=== PATIENT | female | born 1985 ===

== ENCOUNTER 2022-03-29 12:12 | Emergency (ER) | payer OTHER ==
[2022-03-29 15:03] VITALS: BP 112/70
--- NOTE | 2022-03-29 15:07 | Emergency Department Report ---
Chief Complaint: Extremity Injury, Lower Stated Complaint: CONFIRM PREGENCY/LEG SWELLING Time Seen by Provider: 03/29/22 15:05 - HPI History of Present Illness: Intermittent right leg pain. No period in 2 months. - ROS Review of Systems: Right leg pain. - Exam Vital Signs: Vital Signs 03/29/22 14:58 Temperature 98.5 F Pulse Rate 85 Respiratory 18 Rate Blood Pressure 112/70 [Right] O2 Sat by Pulse 98 Oximetry Physical Exam: Right leg pain. MSE screening note: Focused history and physical exam performed. Due to findings the following was ordered: UA, qualitative urine . Patient will be seen by provider when she gets a room in the back. ED Disposition for MSE Condition: Stable
[2022-03-29 15:39] LABS: HCG Qualitative,Urine Negative (Negative)
[2022-03-29 15:43] LABS: Mucus,Urine FEW /HPF
[2022-03-29 16:01] LABS: Bilirubin,Urine Negative (Negative); Blood,Urine Negative (Negative); Color,Urine Straw (Yellow); Protein,Urine <15 mg/dL mg/dL (Negative)
--- NOTE | 2022-03-29 18:13 | Emergency Department Report ---
ED Back Pain/Injury HPI - General Chief Complaint: Extremity Injury, Lower Stated Complaint: CONFIRM PREGENCY/LEG SWELLING Time Seen by Provider: 03/29/22 15:05 Source: patient Limitations: Language Barrier - History of Present Illness Initial Comments: Patient is a 36-year-old female with no past medical history presents to the ED with complaint of acute onset persistent nontraumatic low back pain that radiates to the lower extremities bilaterally for the last 2 months intermittently. Patient states that in the last 1 week, the pain has been constant and persistent. Patient states that she has been taking her [id number] ibuprofen with no relief. Patient denies dysuria, urinary frequency and urgency, chest pain, shortness of breath, traumatic injury, heavy lifting, nausea and vomiting, fever, chills, fall, numbness and tingling or weakness of lower extremities bilaterally. MD Complaint: back pain (LOWER BACK ), other (Pain radiates to the lower extremities bilaterally) -: Gradual, month(s) (2) Similar Symptoms Previously: Yes Place: home Radiation: left leg, right leg Severity: moderate Severity scale (0 -10): 6 Quality: sharp, aching Consistency: intermittent Improves With: none Worsens With: none Context: while lifting, turning/twisting Associated Symptoms: denies other symptoms. denies: confusion, weakness, numbness, difficulty walking, cough, difficulty urinating, diaphoresis, incontinence, fever/chills, headaches, abdominal pain, loss of appetite, malaise, nausea/vomiting, rash, seizure, shortness of breath, syncope, other Treatments Prior to Arrival: NSAIDS - Related Data Previous Rx's Medication Instructions Recorded Last Taken Type Ibuprofen [Motrin] 800 mg PO Q8HR PRN #40 tablet 03/29/22 Unknown Rx methOCARBAMOL [Robaxin TAB] 750 mg PO Q8H PRN #30 tab 03/29/22 Unknown Rx predniSONE [Deltasone] 60 mg PO QDAY #15 tab 03/29/22 Unknown Rx Allergies Allergy/AdvReac Type Severity Reaction Status Date / Time No Known Allergies Allergy Verified 03/29/22 14:57 ED Review of Systems ROS: Stated complaint: CONFIRM PREGENCY/LEG SWELLING Other details as noted in HPI Constitutional: denies: chills, fever Eyes: denies: eye pain, eye discharge, vision change ENT: denies: ear pain, throat pain Respiratory: denies: cough, shortness of breath, wheezing Cardiovascular: denies: chest pain, palpitations Endocrine: no symptoms reported Gastrointestinal: denies: abdominal pain, nausea, diarrhea Genitourinary: denies: urgency, dysuria, discharge Musculoskeletal: back pain (Low back pain that radiates to the lower extremities bilaterally), arthralgia, myalgia. denies: joint swelling Skin: denies: rash, lesions Neurological: denies: headache, weakness, paresthesias Psychiatric: denies: anxiety, depression Hematological/Lymphatic: denies: easy bleeding, easy bruising ED Past Medical Hx - Past Medical History Previous Medical History?: No - Surgical History Past Surgical History?: No - Medications Home Medications: Home Medications Medication Instructions Recorded Confirmed Last Taken Type Ibuprofen [Motrin] 800 mg PO Q8HR PRN #40 tablet 03/29/22 Unknown Rx methOCARBAMOL [Robaxin TAB] 750 mg PO Q8H PRN #30 tab 03/29/22 Unknown Rx predniSONE [Deltasone] 60 mg PO QDAY #15 tab 03/29/22 Unknown Rx ED Physical Exam - General Limitations: Language Barrier General appearance: alert, in no apparent distress - Head Head exam: Present: atraumatic, normocephalic, normal inspection - Eye Eye exam: Present: normal appearance, PERRL, EOMI Pupils: Present: normal accommodation - ENT ENT exam: Present: normal exam, normal orophraynx, mucous membranes moist, TM's normal bilaterally, normal external ear exam - Neck Neck exam: Present: normal inspection, full ROM. Absent: tenderness - Respiratory Respiratory exam: Present: normal lung sounds bilaterally. Absent: respiratory distress, wheezes, rales, rhonchi, stridor, chest wall tenderness, accessory muscle use, decreased breath sounds, prolonged expiratory - Cardiovascular Cardiovascular Exam: Present: regular rate, normal rhythm, normal heart sounds. Absent: systolic murmur, diastolic murmur, rubs, gallop - GI/Abdominal GI/Abdominal exam: Present: soft, normal bowel sounds. Absent: distended, tenderness, guarding, rebound, hyperactive bowel sounds, hypoactive bowel sounds, mass - Extremities Exam Extremities exam: Present: normal inspection, full ROM, normal capillary refill. Absent: tenderness - Back Exam Back exam: Present: normal inspection, full ROM, tenderness (Palpable lumbosacral paraspinal musculoskeletal tenderness), muscle spasm, paraspinal tenderness. Absent: CVA tenderness (R), CVA tenderness (L), vertebral tenderness - Neurological Exam Neurological exam: Present: alert, oriented X3, CN II-XII intact, normal gait, reflexes normal - Psychiatric Psychiatric exam: Present: normal affect, normal mood - Skin Skin exam: Present: warm, dry, intact, normal color. Absent: rash ED Course Vital Signs 03/29/22 14:58 Temperature 98.5 F Pulse Rate 85 Respiratory 18 Rate Blood Pressure 112/70 [Right] O2 Sat by Pulse 98 Oximetry ED Medical Decision Making - Medical Decision Making This is a 36-year-old female with no past medical history presents to the ED with complaint of acute onset persistent nontraumatic low back pain that radiates to the lower extremities bilaterally for the last 2 months intermittently. Patient states that in the last 1 week, the pain has been constant and persistent. Patient states that she has been taking her [id number] ibuprofen with no relief. In the ED, patient is alert and oriented x3 and is not in any distress. Patient was treated for pain in the ED. Urinalysis is unremarkable. On reevaluation, patient's pain is well contr olled medication. Patient will discharge home on pain medications and advised to follow-up with her primary care physician in 7 to 10 days for regular reevaluation. Patient was advised to return to the ED immediately if symptoms get worse. - Differential Diagnosis Muscle spasm; muscle strain; sciatica; Critical care attestation.: If time is entered above; I have spent that time in minutes in the direct care of this critically ill patient, excluding procedure time. ED Disposition Clinical Impression: Spasm of muscle of lower back, Strain of muscle, fascia and tendon of lower back, initial encounter Chronic low back pain with bilateral sciatica Qualifiers: Back pain laterality: bilateral Qualified Code(s): M54.42 - Lumbago with sciatica, left side Disposition: 01 HOME / SELF CARE / HOMELESS Is pt being admited?: No Does the pt Need Aspirin: No Condition: Stable Instructions: Muscle Cramps and Spasms, [id number], Sciatica, [id number], Muscle Strain, [id number], Lumbosacral Strain, Chronic Back Pain, [id number] Additional Instructions: Take medication with food, drink plenty of fluids, follow-up with your primary care physician in 7 to 10 days for reevaluation. Return to the ED immediately if symptoms get worse. Prescriptions: predniSONE [Deltasone] 60 mg PO QDAY #15 tab Ibuprofen [Motrin] 800 mg PO Q8HR PRN #40 tablet PRN Reason: Pain , Severe (7-10) methOCARBAMOL [Robaxin TAB] 750 mg PO Q8H PRN #30 tab PRN Reason: Muscle spasm Referrals: [facility] [Provider Group] - 7-10 days Time of Disposition: 18:11 Print Language: KOREAN
== END 2022-03-29 18:23 | disposition home or self-care (01) ==
LOC: ED 12:12
DX: S39.012A Strain of muscle, fascia and tendon of lower back, initial encounter (principal); M54.42 Lumbago with sciatica, left side; M54.41 Lumbago with sciatica, right side; M62.830 Muscle spasm of back; X58.XXXA Exposure to other specified factors, initial encounter; Y93.89 Activity, other specified; Y92.89 Other specified places as the place of occurrence of the external cause; Y99.8 Other external cause status
CPT/HCPCS: 81001; 81025; 99283